=== PATIENT | female | born 1990 | race Caucasian/White ===

== ENCOUNTER 2018-12-10 18:08 | Emergency (ER) | payer OTHER | END 2018-12-10 18:20 | LOC: E/R 18:08 | DX: S09.90XA Unspecified injury of head, initial encounter (principal); Y04.2XXA Assault by strike against or bumped into by another person, initial encounter; Z87.891 Personal history of nicotine dependence | CPT/HCPCS: 99283 ==

== ENCOUNTER 2019-01-07 17:12 | Emergency (ER) | payer OTHER ==
[2019-01-07] MEDS: LORAZEPAM 0.5 MG TAB PO (19:39)
[2019-01-07] MEDS: morphine LIQ (10 MG/5 ML) CUP PO (19:39)
== END 2019-01-07 20:29 | disposition home or self-care (01) ==
LOC: FTE 17:12
DX: L03.011 Cellulitis of right finger (principal); F17.210 Nicotine dependence, cigarettes, uncomplicated
CPT/HCPCS: 99283; Z7502

== ENCOUNTER 2019-01-17 07:11 | Emergency (ER) | payer OTHER ==
[2019-01-17] MEDS ORDERED: CEPHALEXIN 500 MG CAP PO (07:30)
== END 2019-01-17 08:20 | disposition left against medical advice (07) ==
LOC: FTE 07:11
DX: L03.011 Cellulitis of right finger (principal); F17.210 Nicotine dependence, cigarettes, uncomplicated
CPT/HCPCS: 99283; Z7502